=== PATIENT | female | born 1935 | race Caucasian/White ===

== ENCOUNTER 2024-12-19 18:15 | Inpatient (IN) | payer MEDICARE, OTHER ==
[2024-12-18 20:30] VITALS: BP 103/72; TEMP 98.4; O2SAT 97
[~2024-12-19] VITALS: Ht 154.9 cm; Wt 61.7 kg
[2024-12-19 18:59] LABS: BASOPHILS % (AUTO) 0.5 % (0.0-2.0); EOSINOPHILS # (AUTO) 0.2 K/uL (0.0-0.7); EOSINOPHILS % (AUTO) 3.3 % (0.0-6.0); HEMATOCRIT 31 % (33-45); HEMOGLOBIN 10.5 g/dL (11.5-14.8); LYMPHOCYTES # (AUTO) 1.9 K/uL (0.8-4.8); LYMPHOCYTES % (AUTO) 27.9 % (20.0-44.0); MEAN CORPUSCULAR HEMOGLOBIN 33 PG (26.0-33.0); MEAN CORPUSCULAR HGB CONC 34 g/dl (31.0-36.0); MEAN CORPUSCULAR VOLUME 98 fL (82-100); MONOCYTES # (AUTO) 0.6 K/uL (0.1-1.30); NEUTROPHILS # (AUTO) 4.1 K/uL (1.8-8.9); NEUTROPHILS % (AUTO) 60.3 % (43.0-81.0); PLATELET COUNT (AUTO) 295 K/uL (150-450); RED BLOOD CELL COUNT(AUTO) 3.18 MIL/uL (4.0-5.2); RED CELL DISTRIBUTION WIDTH 15.5 % (11.5-15.0); WHITE BLOOD COUNT (AUTO) 6.8 K/uL (4.3-11.0)
[2024-12-19] MEDS: IV NS 0.9% 1,000 ML BAG IV ONE (19:07)
[2024-12-19 19:08] LABS: CALCIUM, SERUM 8.5 mg/dL (8.5-10.1); CREATININE 0.7 mg/dL (0.6-1.3); POTASSIUM 4.1 mmol/L (3.5-5.1)
[2024-12-19 19:10] LABS: ALBUMIN 1.8 g/dL (3.4-5.0); BILIRUBIN,DIRECT 0.3 mg/dL (0.0-0.2); BILIRUBIN,TOTAL 0.7 mg/dL (0.2-1.0); TOTAL PROTEIN, SERUM 6.7 g/dL (6.4-8.2)
[2024-12-19 19:14] LABS: LACTIC ACID 1.2 mmol/L (0.4-2.0)
[2024-12-19 19:23] LABS: INR 0.94 (0.91-1.10); PARTIAL THROMBOPLASTIN TIME 23.6 SEC (24.3-34.3)
[2024-12-19] MEDS ORDERED: DICL100G34 TP (19:23)
[2024-12-19] MEDS ORDERED: ENOX40DI SQ (19:23)
[2024-12-19] MEDS ORDERED: TRAM50TA2 GT (19:23)
[2024-12-19] MEDS ORDERED: LACT-209 GT (19:23)
[2024-12-19] MEDS ORDERED: ZINC56.713 TP ×2 (19:23)
[2024-12-19] MEDS ORDERED: ASPI-1169 GT (19:23)
[2024-12-19] MEDS ORDERED: OMEP20CA15 GT (19:23)
[2024-12-19] MEDS ORDERED: SENN8.6T19 GT (19:23)
[2024-12-19] MEDS ORDERED: L. A1TAB10 GT (19:23)
[2024-12-19] MEDS ORDERED: MAGN400O6 GT (19:23)
[2024-12-19] MEDS ORDERED: DOCU100C36 GT (19:23)
[2024-12-19] MEDS ORDERED: DONE10TA44 GT (19:23)
[2024-12-19] MEDS ORDERED: MIRT-121 GT (19:23)
[2024-12-19] MEDS ORDERED: ONDA-97 GT (19:23)
[2024-12-19] MEDS ORDERED: SERT25TA5 GT (19:23)
[2024-12-19 19:33] LABS: APPEARANCE,URINE CLEAR (CLEAR); BILIRUBIN,URINE NEGATIVE (NEGATIVE); BLOOD, URINE NEGATIVE Ery/uL (NEGATIVE); COLOR,URINE YELLOW (YELLOW); KETONES,URINE NEGATIVE (NEGATIVE); LEUKOCYTE ESTERASE ,URINE NEGATIVE (NEGATIVE); NITRITE, URINE NEGATIVE (NEGATIVE); PH,URINE 6.5 (5.0-8.0); PROTEIN,URINE NEGATIVE (NEGATIVE); UGLUCOSE NEGATIVE (NEGATIVE)
[2024-12-19] MEDS: ENOXAPARIN SODIUM 40 MG/0.4 ML DISP.SYRIN SQ SCH (20:30)
[2024-12-19] MEDS ORDERED: ONDANSETRON HCL/PF 4 MG/2 ML VIAL IVP PRN (20:30)
[2024-12-19] MEDS ORDERED: DEXTROSE 50%-WATER 50 ML DISP.SYRIN IV PRN (20:30)
[2024-12-19] MEDS ORDERED: MAG HYDROX/AL HYDROX/SIMETH 30 ML UDC GT PRN (20:30)
[2024-12-19] MEDS ORDERED: MAGNESIUM HYDROXIDE 30 ML UDC GT PRN (20:30)
[2024-12-19] MEDS ORDERED: ZINC OXIDE 56.7 GM TUBE TP PRN (21:00)
[2024-12-19] MEDS ORDERED: JEVITY 1.2 CAL 1,000 ML BOTTLE GT SCH (21:00)
[2024-12-19] MEDS ORDERED: DICLOFENAC TOPICAL 100 GM TUBE TP PRN (21:00)
[2024-12-19] MEDS ORDERED: TRAMADOL HCL 50 MG TABLET GT PRN (21:00)
[2024-12-19 21:03] LABS: ADD URINE CULTURE NO; BACTERIA,URINE None seen /HPF (None Seen); RBC,URINE 0-2 /HPF (0-2); WBC,URINE 0-2 /HPF (0-3)
[2024-12-19] MEDS: MIRTAZAPINE 15 MG TABLET GT SCH (21:29)
[2024-12-19] MEDS: DONEPEZIL 5 MG TABLET GT SCH (21:29)
[2024-12-19] MEDS: JEVITY 1.2 CAL 1,000 ML BOTTLE GT SCH (21:41)
[2024-12-20] MEDS: BLOOD SUGAR DIAGNOSTIC 1 EACH STRIP IN SCH (00:08)
[2024-12-20 07:00] VITALS: BP 111/75; TEMP 98.4; O2SAT 94
[2024-12-20 08:08] LABS: BASOPHILS % (AUTO) 0.5 % (0.0-2.0); EOSINOPHILS # (AUTO) 0.3 K/uL (0.0-0.7); EOSINOPHILS % (AUTO) 4.2 % (0.0-6.0); HEMATOCRIT 31 % (33-45); HEMOGLOBIN 10.2 g/dL (11.5-14.8); LYMPHOCYTES # (AUTO) 1.5 K/uL (0.8-4.8); LYMPHOCYTES % (AUTO) 20.3 % (20.0-44.0); MEAN CORPUSCULAR HEMOGLOBIN 32 PG (26.0-33.0); MEAN CORPUSCULAR HGB CONC 33 g/dl (31.0-36.0); MEAN CORPUSCULAR VOLUME 98 fL (82-100); MONOCYTES # (AUTO) 0.6 K/uL (0.1-1.30); MONOCYTES % (AUTO) 8.7 % (2.0-12.0); NEUTROPHILS # (AUTO) 4.8 K/uL (1.8-8.9); NEUTROPHILS % (AUTO) 66.3 % (43.0-81.0); PLATELET COUNT (AUTO) 330 K/uL (150-450); RED CELL DISTRIBUTION WIDTH 15.7 % (11.5-15.0); WHITE BLOOD COUNT (AUTO) 7.2 K/uL (4.3-11.0)
[2024-12-20] MEDS: SERTRALINE HCL 25 MG TABLET GT SCH (08:09)
[2024-12-20] MEDS: ACIDOPHILUS/BULGARICUS 1 EACH TAB.CHEW GT SCH (08:09)
[2024-12-20] MEDS: DOCUSATE SODIUM 100 MG CAPSULE PO SCH (08:09)
[2024-12-20] MEDS: PANTOPRAZOLE 40 MG/PACK PACK GT SCH (08:09)
[2024-12-20] MEDS: ASPIRIN 81 MG TAB.CHEW GT SCH (08:09)
[2024-12-20 08:38] LABS: CALCIUM, SERUM 8.1 mg/dL (8.5-10.1); CREATININE 0.8 mg/dL (0.6-1.3); MAGNESIUM 2.2 mg/dL (1.8-2.4); PHOSPHORUS 3.6 mg/dL (2.5-4.9); POTASSIUM 4.2 mmol/L (3.5-5.1)
[2024-12-20 08:44] LABS: THYROID STIMULATING HORMONE 5.25 uIU/mL (0.358-3.74)
[2024-12-20] MEDS ORDERED: PANTOPRAZOLE 40 MG VIAL IV SCH (09:00)
[2024-12-20] MEDS ORDERED: PANTOPRAZOLE 40 MG/PACK PACK NG SCH (09:00)
[2024-12-20 10:19] VITALS: BP 111/75; TEMP 98.4; O2SAT 94
[2024-12-20 16:00] VITALS: BP 110/92; TEMP 97.9; O2SAT 94
[2024-12-20] MEDS: SENNOSIDES 8.6 MG TABLET GT SCH (17:15)
[2024-12-20 20:00] VITALS: BP 112/76; TEMP 98.7; O2SAT 97
[2024-12-21] MEDS: INSULIN REGULAR, HUMAN 100 UNIT/ML 3 ML VIAL SQ PRN (00:06)
[2024-12-21 08:00] VITALS: BP 101/59; TEMP 97.3
[2024-12-21 09:00] VITALS: BP 109/59; TEMP 98.6; O2SAT 97
[2024-12-21 16:00] VITALS: BP 99/55; TEMP 99.1; O2SAT 96
[2024-12-21] MEDS: ACETAMINOPHEN 325 MG TABLET MC PRN (17:24)
[2024-12-21 17:51] VITALS: BP 94/62; O2SAT 96
== END 2024-12-21 18:30 | DRG 919 ==
LOC: ER 18:17 → MED 20:06
PROVIDERS: ATTEND Nurse Practitioner Acute Care
DX: T85.79XA Infection and inflammatory reaction due to other internal prosthetic devices, implants and grafts, initial encounter (principal); E43 Unspecified severe protein-calorie malnutrition; I50.32 Chronic diastolic (congestive) heart failure; I13.0 Hypertensive heart and chronic kidney disease with heart failure and stage 1 through stage 4 chronic kidney disease, or unspecified chronic kidney disease; F01.53 Vascular dementia, unspecified severity, with mood disturbance; F01.54 Vascular dementia, unspecified severity, with anxiety; R62.7 Adult failure to thrive; D64.9 Anemia, unspecified; E03.9 Hypothyroidism, unspecified; E11.22 Type 2 diabetes mellitus with diabetic chronic kidney disease; E88.09 Other disorders of plasma-protein metabolism, not elsewhere classified; F32.A Depression, unspecified; N18.9 Chronic kidney disease, unspecified; Z88.0 Allergy status to penicillin; R13.10 Dysphagia, unspecified; Z66 Do not resuscitate; K21.9 Gastro-esophageal reflux disease without esophagitis; K74.60 Unspecified cirrhosis of liver; Z20.822 Contact with and (suspected) exposure to COVID-19; R53.1 Weakness; Y83.8 Other surgical procedures as the cause of abnormal reaction of the patient, or of later complication, without mention of misadventure at the time of the procedure; Y92.129 Unspecified place in nursing home as the place of occurrence of the external cause; F39 Unspecified mood [affective] disorder; F41.9 Anxiety disorder, unspecified; K80.80 Other cholelithiasis without obstruction; I35.0 Nonrheumatic aortic (valve) stenosis; Z68.25 Body mass index [BMI] 25.0-25.9, adult
CPT/HCPCS: 36415; 71045-TC; 80048-TC; 80076-TC; 81001; 82962-TC; 83605-TC; 83735-TC; 84100-TC; 84443-TC; 85025-TC; 85730-TC; 87040-TC; 87081-TC; 87086-TC; 97110-TC; 97112-TC; 97530-TC; G0378; J1650; J1815; J7030